=== PATIENT | female | born 1985 | race Two or more races ===

== ENCOUNTER → 2024-08-04 | Outpatient (CLI) | payer MEDICAID, SELFPAY ==
--- NOTE | 2024-08-04 09:30 | XR_ITS ---
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 No gastric mass deformity or ulceration Duodenal bulb expands symmetrically Duodenal sweep in jejunal loops appear normal IMPRESSION: Negative examination
== END | disposition home or self-care (01) ==
PROVIDERS: Referring Provider Specialist; Visit Provider Specialist
DX: K21.9 Gastro-esophageal reflux disease without esophagitis (principal)
CPT/HCPCS: 74240; A4699